=== PATIENT | female | born 1950 | race Caucasian/White ===

== ENCOUNTER 2016-09-08 02:26 | Inpatient (IN) | payer MEDICARE, BC ==
[~2016-09-08] VITALS: Ht 149.9 cm; Wt 44.5 kg
--- NOTE | 2016-09-08 02:30 | NUR ---
to bed 9 a 65 yo female bbra with c/o "woke up with chest tightness and pain radiating to the left arm and left shoulder. Upon arrival to er, patient reported to have feelings of mild chest tightness of about 1/10, no sob. breathing even and unlabored. nsr on the monitor. vs stable. cardiac monitoring on. gowned. initiated comfort measures. awaiting for er md winkler.
[2016-09-08] MEDS ORDERED: ASPIRIN 325 MG TABLET ONE (02:55)
[2016-09-08] MEDS ORDERED: NITROGLYCERIN 0.4 MG/TAB BOTTLE ONE (02:55)
[2016-09-08] MEDS ORDERED: ASPIRIN 81 MG TAB.CHEW ONE (02:55)
[2016-09-08] MEDS ORDERED: ASPIRIN 325 MG TABLET PO ONE (03:00)
[2016-09-08] MEDS ORDERED: ASPIRIN 81 MG TAB.CHEW PO ONE (03:00)
[2016-09-08] MEDS ORDERED: NITROGLYCERIN 0.4 MG/TAB BOTTLE SL ONE (03:00)
--- NOTE | 2016-09-08 03:10 | NUR ---
Patient reported relief from chest tightness after 1 nitro sl administartion. vss. will continue to monitor.
--- NOTE | 2016-09-08 03:11 | NUR ---
started a saline lock on the right forearm g18, blood drawn and sent to lab.
[2016-09-08 03:27] LABS: BASOPHILS % (AUTO) 0.5 % (0.0-2.0); EOSINOPHILS # (AUTO) 0.1 /CMM (0.0-0.7); EOSINOPHILS % (AUTO) 1.2 % (0.0-6.0); HEMATOCRIT 44 % (33-45); HEMOGLOBIN 14.7 g/dL (11.5-14.8); LYMPHOCYTES # (AUTO) 1.4 /CMM (0.8-4.8); LYMPHOCYTES % (AUTO) 18.5 % (20.0-44.0); MEAN CORPUSCULAR HEMOGLOBIN 33 PG (26.0-33.0); MEAN CORPUSCULAR HGB CONC 34 g/dl (31.0-36.0); MEAN CORPUSCULAR VOLUME 98 fL (82-100); MONOCYTES # (AUTO) 0.8 /CMM (0.1-1.30); MONOCYTES % (AUTO) 10.7 % (2.0-12.0); NEUTROPHILS # (AUTO) 5.4 /CMM (1.8-8.9); NEUTROPHILS % (AUTO) 69.1 % (43.0-81.0); PLATELET COUNT (AUTO) 246 /CMM (150-450); RDW COEFFICIENT OF VARIATION 12.9 (11.5-15.0); RED BLOOD CELL COUNT(AUTO) 4.48 MIL/uL (4.0-5.2); WHITE BLOOD COUNT (AUTO) 7.8 K/uL (4.3-11.0)
[2016-09-08 03:37] LABS: CALCIUM, SERUM 9.3 mg/dL (8.5-10.1); CARBON DIOXIDE 30 mmol/L (21-32); CHLORIDE 105 mmol/L (98-107); CREATININE 0.6 mg/dL (0.6-1.3); GFR 100 mL/min (>60); GLUCOSE 100 mg/dL (74-106); POTASSIUM 3.9 mmol/L (3.5-5.1); SODIUM SERUM 142 mmol/L (136-145); UREA NITROGEN, BLOOD 15 mg/dL (7-18)
[2016-09-08 03:41] LABS: INR 0.91 (0.87-1.13); PROTHROMBIN TIME 9.7 SECS (9.5-12.7)
[2016-09-08 03:48] LABS: TROPONIN I < 0.017 ng/mL (0.00-0.056)
--- NOTE | 2016-09-08 04:01 | NUR ---
Report given to Palmer CUMMINS for evans.
--- NOTE | 2016-09-08 04:48 | NUR ---
Transported to room 310-1 via [facility] protocol, no incident noted.
--- NOTE | 2016-09-08 04:55 | NUR ---
DE ICER KIT ASSEMBLER NOTE RECEIVED PATIENT FROM DAY SHIFT, PATIENT IS ALERT AND ORIENTEDX3, DENIES RESPIRATORY DISTRESS AND COMPLAINS OF MILD CHEST TIGHTNESS AT THIS TIME. PT IS AMBULATORY WITH STEADY GAIT. IV ON RIGHT FA IS PATENT AND INTACT. SKIN IS INTACT, NO EDEMA NOTED. TELE MONITOR SR 98. SRX2, BED IN LOW POSITION, CALL LIGHT WITHIN REACH, WILL CONTINUE TO MONITOR PATIENT.
[2016-09-08] MEDS ORDERED: Z GUARD REMEDY 2 OZ OINT TP PRN (05:30)
[2016-09-08] MEDS ORDERED: MAGNESIUM HYDROXIDE 30 ML UDC PO PRN (05:30)
[2016-09-08] MEDS ORDERED: MORPHINE SULFATE INJ 2 MG/ML DISP.SYRIN IV PRN (05:30)
[2016-09-08] MEDS ORDERED: ZOLPIDEM TARTRATE 5 MG TABLET PO PRN (05:30)
[2016-09-08] MEDS ORDERED: HYDROCODONE/APAP 5/325MG 1 EACH TABLET PO PRN (05:30)
[2016-09-08] MEDS ORDERED: ONDANSETRON HCL/PF 4 MG/2 ML VIAL IVP PRN (05:30)
[2016-09-08] MEDS ORDERED: ACETAMINOPHEN 325 MG TABLET PO PRN (05:30)
[2016-09-08] MEDS ORDERED: MAG HYDROX/AL HYDROX/SIMETH 30 ML UDC PO PRN (05:30)
[2016-09-08] MEDS ORDERED: NITROGLYCERIN 0.4 MG/TAB BOTTLE SL PRN (05:30)
[2016-09-08] MEDS ORDERED: METOPROLOL TARTRATE 25 MG TABLET PO SCH (05:30)
--- NOTE | 2016-09-08 05:40 | NUR ---
IGNITER CAPPER NOTE PATIENT'S 0530 METOPROLOL 12.5MG HELD. PATIENT STATED THAT SHE WANTS TO CONFIRM IF IT IS THE RIGHT DOSE FOR HER WHEN HER CHILDREN BRING HER MEDS TODAY. HER BP WAS 135/85 PULSE 98.
--- NOTE | 2016-09-08 06:31 | NUR ---
CHOCOLATIER NOTE PATIENT IS RESTING IN BED COMFORTABLY, STATING THAT HER CHEST DISCOMFORT GOT BETTER NOW. NO S/S OF RESPIRATORY DISTRESS NOTED. IV ON RIGHT FA IS PATENT AND INTACT, HL ONLY. TELE MONITOR SR 96. WILL ENDORSE TO DAY SHIFT NURSE FOR CHANDNI.
--- NOTE | 2016-09-08 07:30 | NUR ---
SUPERINTENDENT POWER NOTES RECEIVED PATIENT AWAKE AOX3. BREATHING EVEN AND UNLABORED. NO S/S OF ANY DISTRESS OR DISCOMFORT AT THIS TIME. DENIES ANY PAIN. CALL LIGHT WITHIN REACH, BED IN LOW POSITION FOR SAFETY MEASURES. WILL CONTINUE TO MONITOR.
[2016-09-08 08:00] VITALS: BP_SYST 117; BP_SYST 97; BP_DIAS 65
--- NOTE | 2016-09-08 08:00 | NUR ---
PERSONAL FINANCE INSTRUCTOR NOTES S/B DR. AVILA WITH NEW ORDERS MADE AND CARRIED OUT. PATIENT FOR STRESS TEST TOMORROW. OBTAINED AND CONSENT SIGNED AND PLACED IN THE CHART.
[2016-09-08] MEDS ORDERED: ATOR20TA PO (08:06)
[2016-09-08] MEDS ORDERED: VALA500T35 PO (08:06)
[2016-09-08] MEDS ORDERED: METO-302 PO (08:06)
[2016-09-08] MEDS: ASPIRIN EC 81 MG TABLET.DR PO SCH (08:42)
[2016-09-08] MEDS: PANTOPRAZOLE 40 MG TABLET.DR PO SCH (08:42)
--- NOTE | 2016-09-08 09:00 | NUR ---
IT INVESTMENT/PORTFOLIO MANAGER NOTES S/B DR. VOSS WITH NEW ORDERS MADE AND CARRIED OUT.
[2016-09-08 12:00] VITALS: BP 100/68
--- NOTE | 2016-09-08 12:00 | NUR ---
WAREHOUSE SHIPPING RECEIVING CLERK NOTES NOTIFIED DR. VOSS ON TROPONIN RESULTS WITH NO NEW ORDERS MADE. PATIENT DENIES ANY PAIN AT THIS TIME. NO SOB OR ANY S/S OF ANY DISTRESS OR DISCOMFORT NOTED. WILL CONTINUE TO MONITOR.
--- NOTE | 2016-09-08 14:37 | NUR ---
GEOGRAPHIC INFORMATION SYSTEM ANALYST NOTES PT C/O DRY COUGH, DR. VOSS MADE AWARE WITH NEW ORDERS MADE AND CARRIED OUT.
[2016-09-08] MEDS ORDERED: diphenhydrAMINE HCL 25 MG CAPSULE PO PRN (15:00)
[2016-09-08 16:00] VITALS: BP 124/83
--- NOTE | 2016-09-08 18:46 | NUR ---
PACKING AND WRAPPING SUPERVISOR NOTES NEEDS ALL ATTENDED AND ANTICIPATED. ENDORSED TO INCOMING SHIFT FOR CONTINUITY OF CARE. PT INSTRUCTED TO BE NPO POST MIDNIGHT FOR STRESS TEST STUDY TOMORROW. PT VERBALIZED UNDERSTANDING.
[2016-09-08 19:00] VITALS: BP 127/77
--- NOTE | 2016-09-08 19:30 | NUR ---
CROSS COUNTRY/TRACK AND FIELD COACH NOTE RECEIVED PATIENT FROM DAY SHIFT, PATIENT IS ALERT AND ORIENTEDX4, DENIES RESPIRATORY DISTRESS AND STATED THAT HER CHEST TIGHTNESS GOT BETTER. TELE MONITOR SR 88. IV ON RIGHT FA IS PATENT AND INTACT, HL ONLY. SRX2, BED IN LOW POSITION, CALL LIGHT WITHIN REACH, WILL CONTINUE TO MONITOR PATIENT.
[2016-09-08] MEDS: SIMVASTATIN 20 MG TABLET PO SCH (21:33)
--- NOTE | 2016-09-08 21:40 | NUR ---
PLUMBER HELPER NOTE PATIENT COMPLAINS OF CHEST TIGHTNESS AGAIN, ADMINISTERED NITRO 0.4 SL. BP WAS 124/70. WILL CONTINUE TO MONITOR EFFECTIVENESS.
--- NOTE | 2016-09-08 21:45 | NUR ---
SUPERVISOR FURNACE ROOM NOTE PATIENT STATED HER CHEST TIGHTNESS GOT LITTLE BETTER, DOESN'T WANT TO TAKE 2ND DOSE OF NITROSTAT. WILL CONTINUE TO MONITOR.
[2016-09-09] VITALS (8 sets, daily range): BP systolic 104–143; BP diastolic 66–88
--- NOTE | 2016-09-09 06:42 | NUR ---
SOLDER SPRAYER NOTE PATIENT IS RESTING ON BED COMFORTABLY, DENIES RESPIRATORY DISTRESS AND NO COMPLAINS OF CHEST TIGHTNESS AT THIS TIME. TELE MONITOR SR 90. NO ACUTE DISTRESS NOTED DURING THE LAUNDRY ROUTEMAN, WILL ENDORSE TO DAY SHIFT FOR CHANDNI.
[2016-09-09 07:06] LABS: BASOPHILS % (AUTO) 0.6 % (0.0-2.0); EOSINOPHILS % (AUTO) 0.8 % (0.0-6.0); HEMATOCRIT 41 % (33-45); HEMOGLOBIN 13.9 g/dL (11.5-14.8); LYMPHOCYTES # (AUTO) 1.4 /CMM (0.8-4.8); LYMPHOCYTES % (AUTO) 22.4 % (20.0-44.0); MEAN CORPUSCULAR HEMOGLOBIN 33 PG (26.0-33.0); MEAN CORPUSCULAR HGB CONC 34 g/dl (31.0-36.0); MEAN CORPUSCULAR VOLUME 98 fL (82-100); MONOCYTES # (AUTO) 0.6 /CMM (0.1-1.30); MONOCYTES % (AUTO) 9.2 % (2.0-12.0); NEUTROPHILS # (AUTO) 4.1 /CMM (1.8-8.9); PLATELET COUNT (AUTO) 216 /CMM (150-450); RDW COEFFICIENT OF VARIATION 12.6 (11.5-15.0); RED BLOOD CELL COUNT(AUTO) 4.18 MIL/uL (4.0-5.2); WHITE BLOOD COUNT (AUTO) 6.1 K/uL (4.3-11.0)
--- NOTE | 2016-09-09 07:21 | NUR ---
COMBINE OPERATOR NOTES RECEIVED PATIENT IN HER ROOM AWAKE, ALERT AND ORIENTED X 3 IN NO ACUTE SIGNS OF DISTRESS. ON ROOM AIR, BREATHING WELL AND UNLABORED. ON TELE-MONITORING WITH CURRENT READING OF SR AND HR OF 86, DENIES ANY CHEST PAIN OR DISCOMFORTS. IV ACCESS ON RIGHT FA INTACT AND PATENT. FOR NM MYOCARDIAL STRESS TEST TODAY, MAINTAINED ON NPO. CALL LIGHT WITHIN REACH, BED IN LOW POSITION AND BREAKS LOCKED FOR SAFETY MEASURES. WILL CONTINUE TO MONITOR ACCORDINGLY.
[2016-09-09 07:28] LABS: CALCIUM, SERUM 8.6 mg/dL (8.5-10.1); CREATININE 0.6 mg/dL (0.6-1.3); PHOSPHORUS 4.1 mg/dL (2.5-4.9); POTASSIUM 3.9 mmol/L (3.5-5.1)
[2016-09-09 07:33] LABS: THYROID STIMULATING HORMONE 0.875 uIU/mL (0.358-3.74)
[2016-09-09] MEDS: ASPIRIN EC 81 MG TABLET.DR PO SCH (08:21)
[2016-09-09] MEDS: PANTOPRAZOLE 40 MG TABLET.DR PO SCH (08:21)
[2016-09-09] MEDS: VALACYCLOVIR HCL 500 MG TABLET PO SCH (08:21)
[2016-09-09] MEDS: INDOMETHACIN 25 MG CAPSULE PO SCH ×2 (08:21→17:43)
[2016-09-09] MEDS ORDERED: METOPROLOL SUCCINATE 25 MG TAB.SR.24H PO SCH (09:00)
[2016-09-09] MEDS ORDERED: REGADENOSON 0.4 MG/5 ML DISP.SYRIN IVP ONE (09:00)
--- NOTE | 2016-09-09 10:22 | NUR ---
RN NOTES PATIENT WENT TO RADIOLOGY FOR NM STRESS TEST.
--- NOTE | 2016-09-09 13:19 | NUR ---
RN NOTES RECEIVED CALL FROM LABORATORY THAT PATIENT'S TROPONIN LEVEL WENT UP FROM 0.179 TO [address] AVILA MADE AWARE WITH ORDER TO START ON LOVENOX 40MG/ML BID. TROPONIN LEVEL WILL BE TAKEN AGAIN TOMORROW MORNING.
[2016-09-09] MEDS ORDERED: ENOXAPARIN SODIUM 40 MG/0.4 ML DISP.SYRIN SQ SCH ×3 (13:33→21:00)
[2016-09-09] MEDS: METOPROLOL TARTRATE 50 MG TABLET PO SCH ×2 (13:55→17:43)
--- NOTE | 2016-09-09 16:20 | NUR ---
RN NOTES PATIENT'S NM STRESS TEST RESULTS CAME-OUT NEGATIVE. DR AVILA MADE AWARE.
--- NOTE | 2016-09-09 18:43 | NUR ---
LINING MAKER HAND CLOSING NOTES PATIENT RESTING IN BED ALERT AND ORIENTED X 4. ALL NEEDS AND CARE WELL ATTENDED. MAINTAINED ON ROOM AIR, NO ACUTE DISTRESS NOTED. ALL DUE MEDS GIVEN ORDERED AND TOLERATED. CONTINUES ON TELE-MONITORING WITH CURRENT READING OF SR AND HR OF 88, NO C/O CHEST PAIN DURING SHIFT. IV ACCESS ON RIGHT FA INTACT AND PATENT. CALL LIGHT WITHIN REACH, BED IN LOW POSITION AND BREAKS LOCKED FOR SAFETY MEASURES. WILL ENDORSED TO LOWER IN SUPERVISOR NURSE FOR CHANDNI.
--- NOTE | 2016-09-09 20:00 | NUR ---
RN NOTES PX RECEIVED AWAKE, ALERT, ORIENTED X 3, ON ROOM AIR, MOVES INDEPENDENTLY IN BED; AMBULATORY; PIV FLUSHED INTACT PATENT; SR ON MONITOR; DENIED CHEST PAIN, OTHER PAIN COMPLAINTS, N/V, DIZZINESS; DISCUSSED PLAN OF CARE; PX SAID SHE IS AWARE OF TRANSFER TO ANOTHER HOSPITAL [facility] FOR CARDIAC CATH; REINFORCED NPO STATUS POST MIDNIGHT.
[2016-09-09] MEDS: SIMVASTATIN 20 MG TABLET PO SCH (21:39)
[2016-09-09] MEDS ORDERED: ATORVASTATIN 10 MG TABLET PO SCH (22:00)
[2016-09-10] VITALS: BP 111/70
[2016-09-10] MEDS: METOPROLOL TARTRATE 50 MG TABLET PO SCH ×3 (00:01→12:00)
[2016-09-10 04:00] VITALS: BP 127/77
--- NOTE | 2016-09-10 06:21 | NUR ---
RN NOTES PX CONDITION AND NEURO STATUS UNCHANGED; NO EVENTS OVERNIGHT; PX DENIED PAIN, SOB, N/V; PIV FLUSHED PATENT AND INTACT; NO SKIN BREAKDOWN; OFFERED EARLY AM CARE BUT REFUSED; KEPT NPO, PX VERBALIZED UNDERSTANDING OF NPO STATUS. WILL ENDORSE TO NEXT RN.
[2016-09-10 06:50] LABS: BASOPHILS % (AUTO) 0.4 % (0.0-2.0); EOSINOPHILS # (AUTO) 0.1 /CMM (0.0-0.7); EOSINOPHILS % (AUTO) 1.2 % (0.0-6.0); HEMATOCRIT 41 % (33-45); HEMOGLOBIN 13.8 g/dL (11.5-14.8); LYMPHOCYTES # (AUTO) 1.4 /CMM (0.8-4.8); MEAN CORPUSCULAR HEMOGLOBIN 33 PG (26.0-33.0); MEAN CORPUSCULAR HGB CONC 34 g/dl (31.0-36.0); MEAN CORPUSCULAR VOLUME 97 fL (82-100); MONOCYTES # (AUTO) 0.6 /CMM (0.1-1.30); NEUTROPHILS # (AUTO) 4.1 /CMM (1.8-8.9); NEUTROPHILS % (AUTO) 65.4 % (43.0-81.0); PLATELET COUNT (AUTO) 229 /CMM (150-450); RDW COEFFICIENT OF VARIATION 12.6 (11.5-15.0); RED BLOOD CELL COUNT(AUTO) 4.22 MIL/uL (4.0-5.2); WHITE BLOOD COUNT (AUTO) 6.3 K/uL (4.3-11.0)
--- NOTE | 2016-09-10 07:00 | NUR ---
RN INITIAL NOTE REPORT RECEIVED FROM HORACIO CUMMINS. PT A/OX3. TELE SR IV RFA #18G INTACT PATENT AND FLUSHED. PAIN 0/10. NO C/O ACUTE SOB. PT AWAKE AND COMFORTABLE IN BED. AWAITING TRANSFER TO [facility].
[2016-09-10 07:23] LABS: ALBUMIN 3.4 g/dL (3.4-5.0); BILIRUBIN,TOTAL 0.6 mg/dL (0.2-1.0); CALCIUM, SERUM 8.6 mg/dL (8.5-10.1); CREATININE 0.6 mg/dL (0.6-1.3); PHOSPHORUS 3.7 mg/dL (2.5-4.9); POTASSIUM 4.2 mmol/L (3.5-5.1); TOTAL PROTEIN, SERUM 6.1 g/dL (6.4-8.2)
[2016-09-10 07:29] LABS: TROPONIN I 0.307 ng/mL (0.00-0.056)
[2016-09-10] MEDS: PANTOPRAZOLE 40 MG TABLET.DR PO SCH (07:30)
[2016-09-10 08:00] VITALS: BP 115/68
[2016-09-10] MEDS: ASPIRIN EC 81 MG TABLET.DR PO SCH (08:40)
[2016-09-10] MEDS: INDOMETHACIN 25 MG CAPSULE PO SCH (08:40)
[2016-09-10] MEDS: VALACYCLOVIR HCL 500 MG TABLET PO SCH (08:40)
--- NOTE | 2016-09-10 10:50 | NUR ---
RN NOTE CALLED AND GAVE REPORT TO FABIÁN @[facility] BAGGAGE AND MAIL AGENT. AWAITING TRANSPORTATION FOR PATIENT. BELONGINGS LIST SIGNED.
--- NOTE | 2016-09-10 11:10 | NUR ---
HUMAN FACTORS ENGINEER NOTE PT TRANSFERED TO [facility] VIA AMBULANCE. PT STABLE B/P 136/75 HR 115 SPO2 96 R 18. REPORT GIVEN TO EMT. IV R WRIST INTACT PATENT. PERSONAL BELONGING TAKEN. WILL LEFT BY PATIENT WILL HAVE SISTER PICK THEM UP IF PT DOES NOT RETURN.
--- NOTE | 2016-09-10 17:16 | NUR ---
HOSPITAL PHARMACY DIRECTOR NOTE PT WILL NOT BE RETURNING TO [facility] WILL BE FOLLOWED @ [facility].
== END 2016-09-10 11:00 | disposition short-term general hospital (02) | DRG 281 ==
LOC: ER 02:28 → TELE 03:53
PROVIDERS: ADMIT Internal Medicine; ATTEND Internal Medicine
DX: I21.4 Non-ST elevation (NSTEMI) myocardial infarction (principal); I31.3 Pericardial effusion (noninflammatory); E78.5 Hyperlipidemia, unspecified; I10 Essential (primary) hypertension; K21.9 Gastro-esophageal reflux disease without esophagitis; Z82.49 Family history of ischemic heart disease and other diseases of the circulatory system; R05 Cough; I73.00 Raynaud's syndrome without gangrene; M51.9 Unspecified thoracic, thoracolumbar and lumbosacral intervertebral disc disorder
CPT/HCPCS: 36415; 71010-TC; 80048-TC; 80053-TC; 80061-TC; 83735-TC; 84100-TC; 84443-TC; 84484-TC; 85025-TC; 85378-TC; 85730-TC; 87081-TC; 93307-TC; A4606; A9502; J1650; J2785; Q0163; Z7610

== ENCOUNTER 2016-10-06 15:45 | Emergency (ER) | payer MEDICARE, BC ==
[~2016-10-06] VITALS: Ht 157.5 cm; Wt 49.9 kg
[~2016-10-06 15:45] MED LIST: ATOR20TA PO; METO-302 PO; VALA500T35 PO
--- NOTE | 2016-10-06 15:56 | NUR ---
Presents self to ed due dt epigastric pain that is worst at night. Per patient she was advised to go to ED by Dr. Scott for ekg to r/o complicaton from stent placement weeks ago. Patient is aa04. No Sob, appears in no apprent distress. Vss/
--- NOTE | 2016-10-06 16:00 | NUR ---
Pt refused saline lock. Md Whitaker made aware
[2016-10-06 16:38] LABS: BASOPHILS % (AUTO) 0.6 % (0.0-2.0); EOSINOPHILS # (AUTO) 0.1 /CMM (0.0-0.7); HEMATOCRIT 37 % (33-45); HEMOGLOBIN 12.6 g/dL (11.5-14.8); LYMPHOCYTES % (AUTO) 20.7 % (20.0-44.0); MEAN CORPUSCULAR HEMOGLOBIN 33 PG (26.0-33.0); MEAN CORPUSCULAR HGB CONC 34 g/dl (31.0-36.0); MEAN CORPUSCULAR VOLUME 97 fL (82-100); MONOCYTES # (AUTO) 0.5 /CMM (0.1-1.30); MONOCYTES % (AUTO) 9.7 % (2.0-12.0); NEUTROPHILS # (AUTO) 3.4 /CMM (1.8-8.9); PLATELET COUNT (AUTO) 170 /CMM (150-450); RDW COEFFICIENT OF VARIATION 11.8 (11.5-15.0); RED BLOOD CELL COUNT(AUTO) 3.77 MIL/uL (4.0-5.2)
[2016-10-06 16:45] LABS: CALCIUM, SERUM 9.3 mg/dL (8.5-10.1); CARBON DIOXIDE 33 mmol/L (21-32); CHLORIDE 105 mmol/L (98-107); CREATININE 0.6 mg/dL (0.6-1.3); GLUCOSE 117 mg/dL (74-106); POTASSIUM 3.5 mmol/L (3.5-5.1); SODIUM SERUM 143 mmol/L (136-145); UREA NITROGEN, BLOOD 10 mg/dL (7-18)
[2016-10-06 16:48] LABS: INR 1.02 (0.87-1.13); PROTHROMBIN TIME 10.6 SECS (9.5-12.7)
[2016-10-06 16:51] LABS: TROPONIN I < 0.017 ng/mL (0.00-0.056)
[2016-10-06 16:59] LABS: ALANINE AMINOTRANSFERASE 39 U/L (12-78); ALBUMIN 3.7 g/dL (3.4-5.0); ALKALINE PHOSPHATASE 46 U/L (46-116); ASPARTATE AMINOTRANSFERASE 17 U/L (15-37); B-TYPE NATRIURETIC PEPTIDE 160 PG/ML (0-125); BILIRUBIN,DIRECT 0.1 mg/dL (0.0-0.2); BILIRUBIN,TOTAL 0.4 mg/dL (0.2-1.0); TOTAL PROTEIN, SERUM 6.5 g/dL (6.4-8.2)
[2016-10-06 17:23] VITALS: BP 120/82
--- NOTE | 2016-10-06 17:23 | NUR ---
Patient discharged to home in stable condition. Written and verbal after care instructions given. Patient verbalizes understanding of instruction.
== END 2016-10-06 17:25 | disposition home or self-care (01) ==
LOC: ER 15:46
DX: R07.9 Chest pain, unspecified (principal); E78.5 Hyperlipidemia, unspecified; I10 Essential (primary) hypertension; I25.2 Old myocardial infarction
CPT/HCPCS: 36415; 71010-TC; 80048-TC; 80076-TC; 83880; 84484-TC; 85025-TC; 85730-TC; A4606; Z7610

== ENCOUNTER 2022-05-20 00:21 | Inpatient (IN) | payer MEDICARE, BC ==
[~2022-05-20] VITALS: Ht 149.9 cm; Wt 52.2 kg
[~2022-05-20 00:21] MED LIST changes: -METO-302 PO; +METO25TA4 PO; -VALA500T35 PO; +VALA500T40 PO
--- NOTE | 2022-05-20 00:36 | NUR ---
c/o chest pain started around 5 pm, alert oriented x 4, ambulatory, no SOB noted, on room air. continue to monitor
--- NOTE | 2022-05-20 01:14 | NUR ---
COVID TEST DONE
--- NOTE | 2022-05-20 01:20 | NUR ---
LAB AT BEDSIDE
--- NOTE | 2022-05-20 01:28 | NUR ---
IV LINE INSERTED ON LAC # 20G
[2022-05-20 01:40] LABS: BASOPHILS % (AUTO) 0.6 % (0.0-2.0); HEMATOCRIT 40 % (33-45); HEMOGLOBIN 13.5 g/dL (11.5-14.8); LYMPHOCYTES # (AUTO) 1.5 K/uL (0.8-4.8); LYMPHOCYTES % (AUTO) 21.9 % (20.0-44.0); MEAN CORPUSCULAR HGB CONC 33 g/dl (31.0-36.0); MEAN CORPUSCULAR VOLUME 100 fL (82-100); MONOCYTES # (AUTO) 0.6 K/uL (0.1-1.30); MONOCYTES % (AUTO) 9.6 % (2.0-12.0); NEUTROPHILS # (AUTO) 4.4 K/uL (1.8-8.9); NEUTROPHILS % (AUTO) 65.9 % (43.0-81.0); PLATELET COUNT (AUTO) 218 K/uL (150-450); RED BLOOD CELL COUNT(AUTO) 4.06 MIL/uL (4.0-5.2); WHITE BLOOD COUNT (AUTO) 6.7 K/uL (4.3-11.0)
[2022-05-20 01:58] LABS: CALCIUM, SERUM 8.2 mg/dL (8.5-10.1); CARBON DIOXIDE 31 mmol/L (21-32); CHLORIDE 107 mmol/L (98-107); CREATININE 0.6 mg/dL (0.6-1.3); GLUCOSE 115 mg/dL (74-106); POTASSIUM 3.8 mmol/L (3.5-5.1); SODIUM SERUM 144 mmol/L (136-145); UREA NITROGEN, BLOOD 16 mg/dL (7-18)
[2022-05-20] MEDS ORDERED: hydrALAZINE HCL IV 20 MG VIAL IV PRN (04:00)
[2022-05-20] MEDS ORDERED: ACETAMINOPHEN 325 MG TABLET PO PRN (04:00)
[2022-05-20] MEDS ORDERED: ONDANSETRON HCL/PF 4 MG/2 ML VIAL IVP PRN (04:00)
[2022-05-20] MEDS ORDERED: MORPHINE SULFATE INJ 2 MG/ML DISP.SYRIN IV PRN (04:00)
--- NOTE | 2022-05-20 04:37 | NUR ---
room 314-2
--- NOTE | 2022-05-20 06:48 | NUR ---
Called [facility] to give report, per hourly shift, give report after change of shift.
--- NOTE | 2022-05-20 07:17 | NUR ---
give report to [facility] nurse Titus
--- NOTE | 2022-05-20 07:25 | NUR ---
patient transfered to [address] [place] [id number] via [facility] room 314-2
--- NOTE | 2022-05-20 07:36 | NUR ---
LANGUAGE ARTS TEACHER NOTE- PT IS A 71 Y/O FEMALE BROUGHT INTO ED FOR CHEST PAIN . HX OF RI AND HLD. PT ALSO HAS [id number] AND DEPRESSION. SHE HAS NKA AND IS COVID NEG. VS- BP-144/90, HR- TELE AT 84 SR, RR- 20, T- 98.0 . O2 SATS AT 98% RA. COVID VACCS X 4, PNA AND FLU THIS SEASON. SKIN INTACT, CHEST CTA, ABD SOFT NT ND W POS BS THROUGHOUT. USES BR, AMBULATORY. NO ISSUES,. DENIES PAIN. ANXIOUSNESS NOTED. DR AVILA AND DR PARKER AT BEDSIDE TO ASSESS. SIDE RAILS UP, CALL LIGHT IN REACH. MONITOR / ASSIST
--- NOTE | 2022-05-20 07:40 | NUR ---
RN NOTE- PT BROUGHT TO 314-2 FOR CHEST PAIN. BEGIN ADMISSION PROCESS
[2022-05-20] MEDS ORDERED: ASPI-1169 PO (07:55)
[2022-05-20] MEDS ORDERED: CHOL100043 PO (07:55)
[2022-05-20] MEDS ORDERED: EZET10TA16 PO (07:55)
[2022-05-20 08:00] VITALS: BP 144/95
[2022-05-20] MEDS ORDERED: ESCI10TA PO (08:05)
[2022-05-20] MEDS ORDERED: LORAZEPAM 0.5 MG TABLET PO STA (08:48)
[2022-05-20] MEDS: ASPIRIN 81 MG TAB.CHEW PO SCH (09:15)
[2022-05-20] MEDS: VALACYCLOVIR HCL 500 MG TABLET PO SCH (09:15)
[2022-05-20] MEDS: EZETIMIBE 10 MG TABLET PO SCH (09:15)
[2022-05-20] MEDS: METOPROLOL SUCCINATE 25 MG TAB.SR.24H PO SCH (09:16)
[2022-05-20] MEDS: ESCITALOPRAM OXALATE (10 MG) 10 MG TABLET PO SCH (09:17)
[2022-05-20] MEDS: HEPARIN SODIUM, PORCINE 5000 UNITS/1 ML VIAL SQ SCH ×2 (09:24→21:40)
[2022-05-20 09:37] LABS: CHOLESTEROL 183 mg/dL (<200); HDL CHOLESTEROL 86 mg/dL (40-60); LDL 75 mg/dL (0-99); TRIGLYCERIDES 153 mg/dL (30-150)
[2022-05-20 12:02] VITALS: BP 133/86
[2022-05-20 16:12] VITALS: BP 126/76
--- NOTE | 2022-05-20 18:32 | NUR ---
RN CLOSING NOTE- PT AOX4, CALM, INTERACTIVE, PO INTAKE FAIR. DENIES CP OR DISCOMFORT, VS STABLE , HR- TELE SR 92/M. PT FOR AM LABS AND F/U W CARDIOLOGY. SIDE RAILS UP, CALL LIGHT CLOSE. MONITOR / ASSIST
--- NOTE | 2022-05-20 19:45 | NUR ---
TELERN ASLEEP EASILY AWAKENED WHEN CALLED. DENIES ANY DISCOMFORTS, NO NEEDS AT THIS TIME. V/S STABLE. REMINDED TO CALL STAFF FOR ANY ASSISTANCE OR DISCOMFORTS. CALL LIGHT WITHIN REACH, SR ON THE MONITOR. SAFETY PRECAUTIONS EMPHASIZED, CONTINUED MONITORING
[2022-05-20 20:00] VITALS: BP 139/85
[2022-05-20] MEDS ORDERED: ATORVASTATIN 10 MG TABLET PO SCH (22:00)
--- NOTE | 2022-05-20 22:00 | NUR ---
TELERN DUE MEDS ADMINISTERED, NO DISCOMFORTS. REMAINS SR.
[2022-05-21 00:35] VITALS: BP 147/84
[2022-05-21 06:26] LABS: BASOPHILS % (AUTO) 0.9 % (0.0-2.0); HEMATOCRIT 40 % (33-45); HEMOGLOBIN 13.4 g/dL (11.5-14.8); LYMPHOCYTES # (AUTO) 1.5 K/uL (0.8-4.8); LYMPHOCYTES % (AUTO) 29.7 % (20.0-44.0); MEAN CORPUSCULAR HGB CONC 34 g/dl (31.0-36.0); MEAN CORPUSCULAR VOLUME 100 fL (82-100); MONOCYTES # (AUTO) 0.6 K/uL (0.1-1.30); MONOCYTES % (AUTO) 10.7 % (2.0-12.0); NEUTROPHILS # (AUTO) 2.8 K/uL (1.8-8.9); NEUTROPHILS % (AUTO) 54.7 % (43.0-81.0); PLATELET COUNT (AUTO) 203 K/uL (150-450); RED BLOOD CELL COUNT(AUTO) 4.01 MIL/uL (4.0-5.2); WHITE BLOOD COUNT (AUTO) 5.1 K/uL (4.3-11.0)
--- NOTE | 2022-05-21 06:30 | NUR ---
TELERN REMAINS UNCHANGED. SR ON THE MONITOR, CONTINUED MONITORING
[2022-05-21 06:49] LABS: ALBUMIN 3.1 g/dL (3.4-5.0); BILIRUBIN,TOTAL 0.4 mg/dL (0.2-1.0); CALCIUM, SERUM 7.9 mg/dL (8.5-10.1); CREATININE 0.6 mg/dL (0.6-1.3); MAGNESIUM 2.1 mg/dL (1.8-2.4); PHOSPHORUS 2.8 mg/dL (2.5-4.9); TOTAL PROTEIN, SERUM 5.9 g/dL (6.4-8.2)
--- NOTE | 2022-05-21 07:05 | NUR ---
SHOP FOREMAN OPENING NOTES RECEIVED PATIENT AWAKE AND IN BED, A/Ox4 ABLE TO MAKE NEEDS KNOWN. ON ROOM AIR, NO S/S OF RESPIRATORY DISTRESS. IV ACCESS LAC #20G S/L. INTACT AND PATENT. NO S/S OF INFILTRATION. ON TELE MONITORING SHOWING SINUS RHYTHM HR 89. NO C/O OF CHEST PAIN OR DISCOMFORT. PATIENT AMBULATORY, HAS BATHROOM PRIVILEGE. SKIN INTACT. SAFETY MEASURES IN PLACE: BED LOCKED AND IN LOWEST POSITION, SIDE RAILS UPx2, CALL LIGHT WITHIN REACH, HOB ELEVATED. WILL CONTINUE TO MONITOR.
[2022-05-21 08:00] VITALS: BP 138/82
[2022-05-21] MEDS: ASPIRIN 81 MG TAB.CHEW PO SCH (08:33)
[2022-05-21] MEDS: VALACYCLOVIR HCL 500 MG TABLET PO SCH (08:33)
[2022-05-21] MEDS: ESCITALOPRAM OXALATE (10 MG) 10 MG TABLET PO SCH (08:33)
[2022-05-21] MEDS: EZETIMIBE 10 MG TABLET PO SCH (08:33)
[2022-05-21 08:36] VITALS: BP 138/82
[2022-05-21] MEDS: METOPROLOL SUCCINATE 25 MG TAB.SR.24H PO SCH (08:36)
[2022-05-21] MEDS: HEPARIN SODIUM, PORCINE 5000 UNITS/1 ML VIAL SQ SCH (08:37)
[2022-05-21] MEDS ORDERED: METO25TA4 PO (09:46)
--- NOTE | 2022-05-21 12:00 | NUR ---
PROFESSOR OF SPORT MANAGEMENT NOTES PATIENT D/C HOME. STABLE, A/Ox4, NO S/S OF RESPIRATORY DISTRESS, NO C/O OF CHEST PAIN OR DISCOMFORT. STABLE ON ROOM AIR. PATIENT GIVEN DISCHARGE INSTRUCTIONS AND HEALTH TEACHINGS. VERBALIZED UNDERSTANDING. PATIENT SIGNED ALL FORMS AND COPIES MADE, FILED INTO CHART. PATIENT GATHERED ALL BELONGINGS TOGETHER AND CHANGED INTO PERSONAL CLOTHING. IV ACCESS REMOVED, PRESSURE DRESSING APPLIED. ID BAND REMOVED. PATIENT SKIN INTACT. PATIENT LEFT UNIT AMBULATING ACCOMPANIED BY ULICES, MYA @[id number]. PATIENT LEAVING VIA PERSONAL VEHICLE. CHARGE NURSE AND MD AWARE OF DISCHARGE.
== END 2022-05-21 10:50 | disposition home or self-care (01) | DRG 918 ==
LOC: ER 00:22 → TELE 07:26
PROVIDERS: ADMIT Internal Medicine; ATTEND Nurse Practitioner Acute Care
DX: T40.5X1A Poisoning by cocaine, accidental (unintentional), initial encounter (principal); I25.110 Atherosclerotic heart disease of native coronary artery with unstable angina pectoris; I10 Essential (primary) hypertension; I25.2 Old myocardial infarction; Z20.822 Contact with and (suspected) exposure to COVID-19; E78.00 Pure hypercholesterolemia, unspecified; F41.9 Anxiety disorder, unspecified; E78.5 Hyperlipidemia, unspecified; Z79.899 Other long term (current) drug therapy; Z95.5 Presence of coronary angioplasty implant and graft; F14.90 Cocaine use, unspecified, uncomplicated; Y92.008 Other place in unspecified non-institutional (private) residence as the place of occurrence of the external cause; Z82.49 Family history of ischemic heart disease and other diseases of the circulatory system
CPT/HCPCS: 36415; 71045-TC; 80048-TC; 80053-TC; 80061-TC; 83735-TC; 84100-TC; 84443-TC; 84484-TC; 85025-TC; 87081-TC; 93307-TC; C9803; G0378; J1644